=== PATIENT | female | born 1975 | race Caucasian/White ===

== ENCOUNTER 2016-12-24 19:37 | Emergency (ER) | payer OTHER ==
[~2016-12-24] VITALS: Ht 167.6 cm; Wt 130.6 kg
[2016-12-24 21:26] VITALS: BP 163/90
== END 2016-12-24 22:40 | disposition home or self-care (01) ==
LOC: EME → EDBD 19:37 → EME 19:37
DX: S93.402A Sprain of unspecified ligament of left ankle, initial encounter (principal); S06.0X0A Concussion without loss of consciousness, initial encounter; V00.121A Fall from non-in-line roller-skates, initial encounter; Y93.51 Activity, roller skating (inline) and skateboarding
CPT/HCPCS: 70450; 72040; 73610; 99281; 99284; J2405; J3010